=== PATIENT | female | born 1990 | race Caucasian/White ===

== ENCOUNTER 2020-04-26 10:05 | Outpatient (CLI) | payer BC ==
[~2020-04-26] VITALS: Ht 175.3 cm; Wt 101.3 kg
[2020-04-26 10:08] VITALS: BP 131/76
[2020-04-26 10:47] LABS: MICROSCOPIC NOT IND
[2020-04-26 10:53] LABS: BASOPHILS # (AUTO) 0.05 x10^3/uL (0-0.1); BASOPHILS % (AUTO) 0 % (0-1); EOSINOPHILS # (AUTO) 0.22 x10^3/uL (0-0.4); EOSINOPHILS % (AUTO) 2 % (1-7); LYMPHOCYTES # (AUTO) 1.57 x10^3/uL (1-3.4); LYMPHOCYTES % (AUTO) 11 % (22-44); MD NO; MEAN CORPUSCULAR HEMOGLOBIN 28.7 pg (27.0-34.8); MEAN CORPUSCULAR HGB CONC 33.5 g/dL (32.4-35.8); MEAN CORPUSCULAR VOLUME 85.5 fL (80-100); MEAN PLATELET VOLUME 7.5 fL (7.4-10.4); MONOCYTES # (AUTO) 0.76 x10^3/uL (0.2-0.8); MONOCYTES % (AUTO) 5 % (2-9); NEUTROPHILS # (AUTO) 12.06 x10^3/uL (1.8-6.8); NEUTROPHILS % (AUTO) 82 % (42-75); PLATELET COUNT 237 x10^3/uL (130-400); RED CELL DISTRIBUTION WIDTH 12.5 % (9.6-15.2)
[2020-04-26 11:05] LABS: ALANINE AMINOTRANSFERASE 10 U/L (12-78); ALBUMIN 2.8 g/dL (3.4-5.0); ANION GAP 7 mmol/L (5-15); CALCIUM 8.9 mg/dL (8.5-10.1); CHLORIDE 111 mmol/L (98-107); CREATININE 0.63 mg/dL (0.55-1.02)
[2020-04-26 11:07] LABS: ALKALINE PHOSPHATASE 122 U/L (45-117); BILIRUBIN,TOTAL 0.3 mg/dL (0.2-1.0); TOTAL PROTEIN 6.4 g/dL (6.4-8.2)
[2020-04-26 11:08] LABS: PROTEIN/CREATININE RATIO,URINE < 161 (0-200); TOTAL PROTEIN,URINE RANDOM < 5 mg/dL (0-12)
== END 2020-04-26 11:43 | disposition home or self-care (01) ==
LOC: EDBD 10:05 → LDOP 10:05
PROVIDERS: ATTEND Obstetrics & Gynecology
DX: O16.3 Unspecified maternal hypertension, third trimester (principal); Z3A.35 35 weeks gestation of pregnancy
CPT/HCPCS: 36415; 59025; 80053; 81003; 82570; 83615; 84156; 84550; 85025

== ENCOUNTER 2020-05-11 09:55 | Inpatient (IN) | payer BC ==
[~2020-05-11] VITALS: Ht 175.3 cm; Wt 104.5 kg
[2020-05-11 09:59] VITALS: BP 137/90
[2020-05-11 10:17] LABS: MICROSCOPIC INDICATED
[2020-05-11 10:52] LABS: BASOPHILS # (AUTO) 0.04 x10^3/uL (0-0.1); BASOPHILS % (AUTO) 0 % (0-1); EOSINOPHILS # (AUTO) 0.08 x10^3/uL (0-0.4); EOSINOPHILS % (AUTO) 1 % (1-7); LYMPHOCYTES # (AUTO) 1.35 x10^3/uL (1-3.4); LYMPHOCYTES % (AUTO) 10 % (22-44); MD NO; MEAN CORPUSCULAR VOLUME 84.8 fL (80-100); MEAN PLATELET VOLUME 8.3 fL (7.4-10.4); MONOCYTES # (AUTO) 0.56 x10^3/uL (0.2-0.8); MONOCYTES % (AUTO) 4 % (2-9); NEUTROPHILS # (AUTO) 11.26 x10^3/uL (1.8-6.8); NEUTROPHILS % (AUTO) 85 % (42-75); PLATELET COUNT 231 x10^3/uL (130-400); RED BLOOD COUNT 4.13 x10^6/uL (3.82-5.3); RED CELL DISTRIBUTION WIDTH 12.6 % (9.6-15.2)
[2020-05-11 10:56] LABS: TOTAL PROTEIN,URINE RANDOM < 5 mg/dL (0-12)
[2020-05-11 10:58] LABS: ALANINE AMINOTRANSFERASE 11 U/L (12-78); ALBUMIN 2.8 g/dL (3.4-5.0); ANION GAP 6 mmol/L (5-15); CALCIUM 8.7 mg/dL (8.5-10.1); CHLORIDE 110 mmol/L (98-107); CREATININE 0.66 mg/dL (0.55-1.02)
[2020-05-11 11:00] LABS: ALKALINE PHOSPHATASE 127 U/L (45-117); BILIRUBIN,TOTAL 0.4 mg/dL (0.2-1.0); TOTAL PROTEIN 6.4 g/dL (6.4-8.2)
[2020-05-11 11:02] LABS: BILIRUBIN, DIRECT < 0.1 mg/dL (0.1-0.2)
[2020-05-11] MEDS ORDERED: LACTATED RINGERS 1,000 ML IV SCH ×2 (11:58→17:49)
[2020-05-11] MEDS ORDERED: OXYTOCIN 30U/ 0.9% NaCL 500ML 500 ML IV PRN (11:58)
[2020-05-11] MEDS: D5%-LACTATED RINGERS 1,000 ML IV SCH ×2 (11:58→21:48)
[2020-05-11] MEDS ORDERED: OXYTOCIN 30U/ 0.9% NaCL 500ML 500 ML IV ONE (11:58)
[2020-05-11] MEDS ORDERED: CALCIUM CARBONATE 500 MG TAB.CHEW PO PRN (12:00)
[2020-05-11] MEDS ORDERED: TERBUTALINE 1 MG/ML, 1ML SQ PRN (12:00)
[2020-05-11] MEDS ORDERED: PENICILLIN GK 5,000,000 UNITS in DEXTROSE 5% 100 ML IVPB ONE (12:00)
[2020-05-11] MEDS ORDERED: TERBUTALINE 1 MG/ML, 1ML IVPush PRN (12:00)
[2020-05-11] MEDS ORDERED: ONDANSETRON 2MG/ML, 2ML IVPush PRN (12:00)
[2020-05-11] MEDS ORDERED: FENTANYL PF 100 MCG/2ML IV PRN (12:00)
[2020-05-11] MEDS ORDERED: FENTANYL PF 100 MCG/2ML IVPush PRN (12:00)
[2020-05-11] MEDS ORDERED: OXYTOCIN 30U/ 0.9% NaCL 500ML 500 ML ONE ×2 (12:14→14:28)
[2020-05-11] MEDS ORDERED: NEWBORN KIT ONE (12:16)
[2020-05-11] MEDS: PENICILLIN GK 2,500,000 UNITS in DEXTROSE 5% 100 ML IVPB SCH ×2 (15:58→20:18)
[2020-05-11] MEDS ORDERED: ACETAMINOPHEN 325 MG TABLET ONE (17:25)
[2020-05-11] MEDS ORDERED: FENTANYL/BUPIV./NS/PF 250 ML EPIDCONT SCH (17:49)
[2020-05-11] MEDS ORDERED: BUPIVACAINE/PF 0.25% ONE (17:53)
[2020-05-11] MEDS ORDERED: FENTANYL/BUPIV./NS/PF 250 ML EPIDCONT ONE (17:56)
[2020-05-11] MEDS ORDERED: EPHEDRINE 50 MG/ML, 1ML IVPush PRN (18:00)
[2020-05-11] MEDS ORDERED: NALOXONE 0.4 MG/ML, 1ML IVPush PRN (18:00)
[2020-05-11] MEDS ORDERED: LACTATED RINGERS 1,000 ML IVBOLUS PRN (18:00)
[2020-05-11] MEDS ORDERED: PNV1TABL97 PO (21:10)
[2020-05-12] MEDS ORDERED: MISOPROSTOL 200 MCG TABLET ONE (04:10)
[2020-05-12] MEDS ORDERED: TRANEXAMIC ACID 100 MG/ML, 10ML ONE (04:47)
[2020-05-12] MEDS ORDERED: ACETAMINOPHEN 325 MG TABLET PO PRN (05:30)
[2020-05-12] MEDS ORDERED: ONDANSETRON 2MG/ML, 2ML IV PRN (05:30)
[2020-05-12] MEDS ORDERED: MISOPROSTOL 200 MCG TABLET PR PRN ×2 (05:30→06:00)
[2020-05-12] MEDS ORDERED: OXYcodone/APAP 5/325MG TABLET PO PRN (05:30)
[2020-05-12] MEDS ORDERED: DOCUSATE 100 MG CAPSULE PO PRN (05:30)
[2020-05-12] MEDS ORDERED: RHOGAM FROM BLOOD BANK 1 NOTE EA IM/IV ONE (05:30)
[2020-05-12] MEDS ORDERED: HYDROcodone/APAP 5/325 TABLET PO PRN (05:30)
[2020-05-12] MEDS ORDERED: BISACODYL 10 MG SUPP PR PRN (05:30)
[2020-05-12] MEDS ORDERED: OXYTOCIN 30U/ 0.9% NaCL 500ML 500 ML ONE (05:57)
[2020-05-12] MEDS: OXYTOCIN 30U/ 0.9% NaCL 500ML 500 ML IV SCH ×2 (06:00→15:10)
[2020-05-12] MEDS ORDERED: TRANEXAMIC ACID 100 MG/ML, 10ML IV ONE (06:00)
[2020-05-12] MEDS ORDERED: IBUPROFEN 800 MG TABLET ONE (06:45)
[2020-05-12] MEDS: IBUPROFEN 800 MG TABLET PO PRN ×2 (06:48→16:57)
[2020-05-12 08:00] VITALS: BP 122/81
[2020-05-12] MEDS: PRENATAL VIT/IRON/FA 1 EACH TABLET PO SCH (09:00)
[2020-05-12 12:20] VITALS: BP 118/73
[2020-05-12 13:04] LABS: MEAN CORPUSCULAR HEMOGLOBIN 27.5 pg (27.0-34.8); MEAN CORPUSCULAR HGB CONC 32.3 g/dL (32.4-35.8); MEAN CORPUSCULAR VOLUME 85.2 fL (80-100); MEAN PLATELET VOLUME 7.9 fL (7.4-10.4); PLATELET COUNT 207 x10^3/uL (130-400); RED BLOOD COUNT 3.69 x10^6/uL (3.82-5.3); RED CELL DISTRIBUTION WIDTH 12.8 % (9.6-15.2)
[2020-05-12 13:21] LABS: MD YES
[2020-05-12 13:23] LABS: <PLATELET ESTIMATE> ADEQUATE; <PLT MORPHOLOGY> NORMAL PLT MORPH; <RBC MORPHOLOGY> NORMAL; BAND#(MANUAL) 0.61 x10^3/uL; BANDS%(MANUAL) 3 % (0-7); LYMPH#(MANUAL) 1.63 x10^3/uL (1-3.4); LYMPHS% (MANUAL) 8 % (22-44); MONOS% (MANUAL) 1 % (2-9); SEG#(MANUAL) 17.95 x10^3/uL (1.8-6.8); SEGS% (MANUAL) 88 % (42-75)
[2020-05-12 16:35] VITALS: BP 131/75
[2020-05-12 20:00] VITALS: BP 127/84
[2020-05-13 00:04] VITALS: BP 122/78
[2020-05-13] MEDS: OXYTOCIN 30U/ 0.9% NaCL 500ML 500 ML IV SCH (00:21)
[2020-05-13 08:00] VITALS: BP 151/91
[2020-05-13] MEDS ORDERED: DOCU-131 PO (09:16)
[2020-05-13] MEDS ORDERED: IBUP-1222 PO (09:16)
[2020-05-13] MEDS: PRENATAL VIT/IRON/FA 1 EACH TABLET PO SCH (11:04)
== END 2020-05-13 11:51 | disposition home or self-care (01) | DRG 807 ==
LOC: LDOP 09:55 → LDIP 11:58 → 2NW 05-12 07:35
PROVIDERS: ADMIT Obstetrics & Gynecology; ATTEND Obstetrics & Gynecology
PROC: 10907ZC Drainage of Amniotic Fluid, Therapeutic from Products of Conception, Via Natural or Artificial Opening (ICD-10-PCS; 2020-05-11)
PROC: 10E0XZZ Delivery of Products of Conception, External Approach (ICD-10-PCS; principal; 2020-05-12)
PROC: 0HQ9XZZ Repair Perineum Skin, External Approach (ICD-10-PCS; 2020-05-12)
PROC: 3E0R3BZ Introduction of Anesthetic Agent into Spinal Canal, Percutaneous Approach (ICD-10-PCS; 2020-05-12)
PROC: 00HU33Z Insertion of Infusion Device into Spinal Canal, Percutaneous Approach (ICD-10-PCS; 2020-05-12)
PROC: 3E033VJ Introduction of Other Hormone into Peripheral Vein, Percutaneous Approach (ICD-10-PCS; 2020-05-12)
DX: O13.4 Gestational [pregnancy-induced] hypertension without significant proteinuria, complicating childbirth (principal); Z37.0 Single live birth; O99.824 Streptococcus B carrier state complicating childbirth; O72.1 Other immediate postpartum hemorrhage; O70.0 First degree perineal laceration during delivery; Z3A.38 38 weeks gestation of pregnancy; Z80.1 Family history of malignant neoplasm of trachea, bronchus and lung; Z82.3 Family history of stroke; Z03.818 Encounter for observation for suspected exposure to other biological agents ruled out
CPT/HCPCS: 36415; J7121; 80053; 81001; 82248; 82570; 83615; 84156; 84550; 85025; 86592; 86850; 86900; 87635; G0378; J2540; J3490; J2590; J3010; J7120